=== PATIENT | female | born 2005 | race Caucasian/White ===

== ENCOUNTER 2023-12-19 06:00 | Inpatient (IN) | payer OTHER ==
[2023-12-19 06:30] VITALS: BMI 34.0
[2023-12-19] MEDS ORDERED: hydrALAZINE 20 MG/ML VIAL SLOW IVP PRN ×2 (06:57→21:34)
[2023-12-19] MEDS ORDERED: Methylergonovine 0.2 MG/ML VIAL IM PRN (06:57)
[2023-12-19] MEDS ORDERED: fentaNYL 50 mcg/mL 1 mL Vial SLOW IVP PRN ×2 (06:57→18:45)
[2023-12-19] MEDS ORDERED: Tranexamic Acid 1,000 MG/10 ML VIAL IVP PRN (06:57)
[2023-12-19] MEDS ORDERED: Promethazine HCl 25 MG/ML VIAL IM PRN ×4 (06:57→21:34)
[2023-12-19] MEDS ORDERED: Ondansetron PF 4 MG/2 ML Vial IVP PRN ×5 (06:57→21:34)
[2023-12-19] MEDS ORDERED: Carboprost 250 MCG/ML AMP IM PRN (06:57)
[2023-12-19] MEDS ORDERED: HYDROcodone/Acetaminophen 5/325 mg Tablet PO PRN (06:57)
[2023-12-19] MEDS ORDERED: Diphenoxylate HCl/Atropine Tablet PO PRN (06:57)
[2023-12-19] MEDS ORDERED: Ibuprofen 800 MG TAB PO PRN (06:57)
[2023-12-19] MEDS ORDERED: Lactated Ringer's 1,000 ML IV SCH (06:57)
[2023-12-19] MEDS ORDERED: Oxytocin 30 units/NS 500 ML 500 ML IV SCH ×4 (06:57→21:34)
[2023-12-19] MEDS ORDERED: Misoprostol 200 MCG TAB PR PRN (06:57)
[2023-12-19] MEDS ORDERED: Acetaminophen 500 MG TAB PO PRN (06:57)
[2023-12-19] MEDS ORDERED: Lidocaine 1% (PF) 30 ML VIAL SC PRN (06:57)
[2023-12-19 07:11] LABS: Hematocrit 34.5 % (34.9-44.5); Hemoglobin 12.2 g/dL (12.0-15.5); Mean Corpuscular HGB CONC 35.4 g/dL (32.0-36.0); Mean Corpuscular Hemoglobin 32.2 pg (27.0-33.0); Mean Platelet Volume 11.8 fL (7.4-10.4); Platelet Count 195 10x3/uL (150-450); RBC Distribution Width 13.1 % (11.5-14.5); Red Blood Cell (RBC) Count 3.79 10x6/uL (3.90-5.03)
[2023-12-19 07:38] LABS: Syphilis Antibody Nonreactive (Nonreactive); Syphilis Antibody Index 0.06 S/CO (<1.00 Non-Reactive)
[2023-12-19 07:40] LABS: HBsAg Index 0.16 S/CO (0-0.99); Hep B Surf Ag - L&D Non-Reactive S/CO (NonReactive)
[2023-12-19] MEDS ORDERED: Bupivacaine HCl 0.5%/Epinephrine 1:200,000/PF 30 ml Vial ONE (08:00)
[2023-12-19] MEDS ORDERED: ePHEDrine Sulfate 50 MG/10 ML VIAL ONE (08:00)
[2023-12-19] MEDS ORDERED: Bupivacaine PF 0.5% 30 ML VIAL ONE (08:00)
[2023-12-19] MEDS ORDERED: Bupivacaine 0.25% HCL 30 ML VIAL ONE (08:00)
[2023-12-19] MEDS: fentaNYL/Ropivacaine Epidural 100 ML ONE (09:34)
[2023-12-19] MEDS ORDERED: Acetaminophen 325 MG TAB PO PRN (09:50)
[2023-12-19] MEDS ORDERED: ePHEDrine Sulfate 50 MG/10 ML VIAL SLOW IVP PRN (09:50)
[2023-12-19] MEDS ORDERED: Moisturizing Cream (Eucerin) 113 GM JAR TOP PRN ×2 (09:50→18:45)
[2023-12-19] MEDS ORDERED: Lactated Ringer's 500 ML IV PRN (09:50)
[2023-12-19] MEDS ORDERED: diphenhydrAMINE 50 MG/ML VIAL IVP PRN ×2 (09:50→18:45)
[2023-12-19] MEDS ORDERED: Naloxone HCl 0.4 mg/ml Vial IVP PRN ×4 (09:50→18:45)
[2023-12-19] MEDS ORDERED: fentaNYL 2 mcg/Ropivacaine 0.2% Epidural 100 ML CADD EPIDURAL SCH (10:00)
[2023-12-19] MEDS ORDERED: Communication Order-Pharmacy FS SCH ×2 (10:00→18:45)
[2023-12-19] MEDS ORDERED: Morphine 4 MG/ML VIAL SLOW IVP PRN (18:45)
[2023-12-19] MEDS ORDERED: Ketorolac Tromethamine 30 MG (1 mL) VIAL IVP PRN (18:45)
[2023-12-19] MEDS ORDERED: Naloxone HCl 0.4 mg/ml Vial IV PRN (18:45)
[2023-12-19] MEDS ORDERED: Meperidine HCl/PF 25 MG (1 mL) VIAL SLOW IVP PRN (18:45)
[2023-12-19] MEDS: Ketorolac Tromethamine 30 MG (1 mL) VIAL IVP SCH (19:46)
[2023-12-19] MEDS ORDERED: Bisacodyl 10 MG SUPP PR PRN (21:34)
[2023-12-19] MEDS ORDERED: Simethicone Chewable 80 MG TAB PO PRN (21:34)
[2023-12-19] MEDS ORDERED: Lanolin Ointment 7 GM TUBE TOP PRN (21:34)
[2023-12-19] MEDS ORDERED: diphenhydrAMINE 25 MG CAP PO PRN (21:34)
[2023-12-19] MEDS: Erythromycin Base 0.5% Oint 1 GM TUBE ONE (22:49)
[2023-12-19] MEDS: CEFAZOLIN 2 GM VIAL ONE (22:49)
[2023-12-19] MEDS: Azithromycin 500 MG VIAL ONE (22:49)
[2023-12-19] MEDS: Oxytocin 30 units/NS 500 ML 500 ML ONE (22:49)
[2023-12-19] MEDS: Docusate 100 MG CAP PO SCH (22:50)
[2023-12-19] MEDS: Dexamethasone 4 mg/ml Vial ONE (22:50)
[2023-12-19] MEDS: Ondansetron PF 4 MG/2 ML Vial ONE (22:50)
[2023-12-19] MEDS: Phytonadione Neonatal 1 MG/0.5 ML AMP ONE (22:50)
[2023-12-19] MEDS: Morphine PF 10 MG/10 ML VIAL ONE (22:50)
[2023-12-19] MEDS: Oxytocin 10 UNITS/ML VIAL ONE (22:50)
[2023-12-19] MEDS: Ferrous Sulfate 325 MG TAB PO SCH (22:51)
[2023-12-19] MEDS: Hepatitis B Vaccine 10 MCG/0.5 ML SYR ONE (22:51)
[2023-12-20] MEDS: Ketorolac Tromethamine 30 MG (1 mL) VIAL IVP SCH ×2 (03:11→08:11)
[2023-12-20 03:35] LABS: Hemoglobin 10.9 g/dL (12.0-15.5); Mean Corpuscular HGB CONC 35.2 g/dL (32.0-36.0); Mean Corpuscular Volume 90.9 fL (81.6-98.3); Mean Platelet Volume 11.8 fL (7.4-10.4); Platelet Count 167 10x3/uL (150-450); Red Blood Cell (RBC) Count 3.41 10x6/uL (3.90-5.03); White Blood Cell (WBC) Count 15.2 10x3/uL (3.5-10.5)
[2023-12-20] MEDS ORDERED: Meperidine HCl/PF 25 MG (1 mL) VIAL IM PRN (06:45)
[2023-12-20] MEDS: Boostrix 0.5 ML (Tdap) VIAL (>/=7 yrs of age) IM ONE (07:16)
[2023-12-20] MEDS: Docusate 100 MG CAP PO SCH (08:11)
[2023-12-20] MEDS: Prenatal Vitamin 1 TAB PO SCH (08:11)
[2023-12-20] MEDS: HYDROcodone/Acetaminophen 5/325 mg Tablet PO PRN (12:40)
[2023-12-20] MEDS: Ferrous Sulfate 325 MG TAB PO SCH (12:41)
[2023-12-20] MEDS ORDERED: Ibuprofen 800 MG TAB PO SCH (23:59)
[2023-12-21] MEDS: Ibuprofen 800 MG TAB PO SCH (05:11)
[2023-12-21 20:44] VITALS: BP 121/65; TEMP 98
[2023-12-22] MEDS: HYDROcodone/Acetaminophen 5/325 mg Tablet PO PRN (02:31)
== END 2023-12-22 14:35 | disposition home or self-care (01) | DRG 788 ==
LOC: CSHLD 06:04 → CSHPP 21:07
PROVIDERS: ADMIT Family Medicine; ATTEND Family Medicine
PROC: 10D00Z1 Extraction of Products of Conception, Low, Open Approach (ICD-10-PCS; principal; 2023-12-19)
PROC: 10H07YZ Insertion of Other Device into Products of Conception, Via Natural or Artificial Opening (ICD-10-PCS; 2023-12-19)
PROC: 10H073Z Insertion of Monitoring Electrode into Products of Conception, Via Natural or Artificial Opening (ICD-10-PCS; 2023-12-19)
PROC: 3E033VJ Introduction of Other Hormone into Peripheral Vein, Percutaneous Approach (ICD-10-PCS; 2023-12-19)
DX: O76 Abnormality in fetal heart rate and rhythm complicating labor and delivery (principal); Z3A.39 39 weeks gestation of pregnancy; Z37.0 Single live birth
CPT/HCPCS: 36415; 51702; 85027; 86780; 86850; 86900; 86901; 87340; J0665; J1100; J1885; J2274; J2405; J2590

== ENCOUNTER 2024-04-21 16:42 | Emergency (ER) | payer OTHER ==
[2024-04-21] MEDS ORDERED: Ondansetron PF 4 MG/2 ML Vial ONE (17:32)
[2024-04-21 17:55] LABS: BHCG - Serum Negative (NEGATIVE); Pregs Control Background? CLEAR/WHITE (CLR/WHITE); Pregs Control Bar Appear? YES (CONTROL BAR)
[2024-04-21 18:22] LABS: #Basophils 0.03 10x3/uL (0.0-0.2); #Eosinophils 0.03 10x3/uL (0.0-0.5); #Monocytes 0.66 10x3/uL (0.0-1.1); #Neutrophils 7.25 10x3/uL (1.5-8.4); %Basophils 0.3 % (0.0-2.0); %Eosinophils 0.3 % (0.0-6.0); %Lymphocytes 10.3 % (18.0-47.0); %Monocytes 7.4 % (0.0-10.0); %Neutrophils 81.4 % (40.0-75.0); ALT (SGPT) 10 U/L (8-55); AST (SGOT) 16 U/L (5-34); Albumin 3.7 g/dL (3.5-5.0); Alkaline Phosphatase 56 U/L (40-100); Anion Gap 13 mmol/L (10-20); BUN (Urea Nitrogen) 10 mg/dL (7.0-18.7); Bilirubin, Total 0.6 mg/dL (0.2-1.2); Calc. Creatinine Clearance 0 mL/min (70-130); Calcium 9.1 mg/dL (7.8-10.44); Carbon Dioxide 26 mmol/L (22-29); Chloride 101 mmol/L (98-107); Estimated GFR 115; Glucose 96 mg/dL (70-105); Hematocrit 41.4 % (34.9-44.5); Hemoglobin 14.3 g/dL (12.0-15.5); Lipase 8 U/L (8-78); Mean Corpuscular HGB CONC 34.5 g/dL (32.0-36.0); Mean Corpuscular Hemoglobin 31.4 pg (27.0-33.0); Mean Corpuscular Volume 90.8 fL (81.6-98.3); Mean Platelet Volume 10.9 fL (7.4-10.4); Platelet Count 227 10x3/uL (150-450); Potassium 3.3 mmol/L (3.5-5.1); Protein, Total 6.7 g/dL (6.0-8.3); RBC Distribution Width 14.2 % (11.5-14.5); Red Blood Cell (RBC) Count 4.56 10x6/uL (3.90-5.03); Sodium 137 mmol/L (136-145); White Blood Cell (WBC) Count 8.9 10x3/uL (3.5-10.5)
[2024-04-21 19:54] LABS: Bilirubin Neg (Negative); Blood, Urine Negative (Negative); Glucose, Urine (Dipstick) Normal (Negative); Ketone, Urine Negative (Negative); Leukocyte 500 (Negative); Nitrite Negative (Negative); Protein, Urine (Dipstick) 30 mg/dl (Neg-Trace); Specific Gravity, Urine 1.015 (1.005-1.030)
[2024-04-21 20:08] LABS: Clarity Hazy (Clear)
[2024-04-21 20:15] LABS: Bacteria/HPF 2+ HPF (None Seen); Mucous/LPF 3+ LPF (<2+); RBC/HPF 0-3 HPF (0-3)
[2024-04-21 20:48] LABS: CAUTI Indications for Culture Pelvic or flank pain
== END 2024-04-21 20:36 | disposition home or self-care (01) ==
LOC: CSHERS 16:42
DX: R10.13 Epigastric pain (principal); R53.1 Weakness; R11.2 Nausea with vomiting, unspecified; Z55.0 Illiteracy and low-level literacy
CPT/HCPCS: 74177; 80053; 81001; 83690; 84703; 85025; 96361; 96374; J2405

== ENCOUNTER 2024-10-15 14:46 | Emergency (ER) | payer OTHER | END 2024-10-15 16:52 | disposition home or self-care (01) | LOC: CSHERS 14:46 | DX: J02.0 Streptococcal pharyngitis (principal) | CPT/HCPCS: 87081; 87428; 87430; 99283 ==